=== PATIENT | female | born 1960 | race Hispanic/Latino ===

== ENCOUNTER 2025-09-23 17:51 | Emergency (ER) | payer OTHER, MEDICAID ==
[~2025-09-23] VITALS: Ht 162.6 cm; Wt 99.8 kg
--- NOTE | 2025-09-23 17:57 | ERN ---
ED Note History of Present Illness Stated Complaint: ANXIETY Chief Complaint: Anxiety/Panic Attack Time Seen by MD: 17:52 Dictation: PATIENT IS A 65-YEAR-OLD FEMALE COMING IN FROM HOME VIA EMS WITH COMPLAINTS OF NEEDING AMBIEN BECAUSE SHE RAN OUT A WEEK AGO. SHE DENIES SUICIDAL OR HOMICIDAL IDEATION SHE IS POORLY REDIRECTED IN YELLING OUT. EMS STATES THAT IT WAS HER BOYFRIEND THAT SHE LIVES WITH A CALLED THEM TO BRING HER TO [facility]. PATIENT DOES STATE HER PSYCHIATRIST HIS EMILY, IN [facility]. Allergies: Coded Allergies: azithromycin (Unverified Allergy, Unknown, 09/23/25) Past Medical History RN Note Reviewed/Agreed w/PFSH: Yes Review of System Dictation CONSTITUTIONAL: NEGATIVE EXCEPT FOR HPI HEAD/FACE: NEGATIVE EXCEPT FOR HPI EENT: NEGATIVE EXCEPT FOR HPI RESPIRATORY: NEGATIVE EXCEPT FOR HPI GASTROINTESTINAL/ABDOMINAL: NEGATIVE EXCEPT FOR HPI GENITOURINARY: NEGATIVE EXCEPT FOR HPI MUSCULOSKELETAL: NEGATIVE EXCEPT FOR HPI INTEGUMENTARY: NEGATIVE EXCEPT FOR HPI NEUROLOGICAL/PSYCH: NEGATIVE EXCEPT FOR HPI ANXIETY HEMATOLOGIC/LYMPHATIC: NEGATIVE EXCEPT FOR HPI ALL SYSTEMS NEGATIVE, EXCEPT NOTED ABOVE. 13 POINT REVIEW OF SYSTEMS ASSESSED AND ALL NEGATIVE EXCEPT FOR ABOVE. Initial Vital Sign VS Vital Signs Date Time Temp Pulse Resp B/P (MAP) Pulse Ox O2 Delivery O2 Flow Rate FiO2 09/23/25 17:53 98.1 95 18 171/89 98 Room Air 0 09/23/25 18:06 21 Physical Exam Dictation VITAL SIGNS REVIEWED GENERAL APPEARANCE: ALERT, ORIENTED X 3, ANXIOUS MODERATE CUTE DISTRESS, WELL DEVELOPED, NOURISHED. OBESE HEAD AND FACE: NON-TRAUMATIC. EYES: PERRL, PINK CONJUNCTIVAS, EYELID NO TRAUMA, ANTERIOR CHAMBER WITH ARCUS SENILIS. EARS: PINNAS INTACT AND NO SIGNS OF TRAUMA OR ERYTHEMA EAR CANALS CLEAR AND NO DISCHARGE TM NO ERYTHEMA NOSE: NO DISCHARGE, NO BLEEDING. OROPHARYNX: MOUTH NORMAL, TONGUE PINK, PHARYNX CLEAR,NO ERYTHEMA, TONSILS NO EXUDATES, NO ABSCESSES NOTED, MUCOUS MEMBRANE MOIST NECK: SUPPLE, NON-TENDER, NO THYROMEGALY, NO MASSES, NO JVD, NO BRUITS BREAST:DEFERRED CHEST:NO TENDERNESS, NO CREPITUS, NO PARADOXICAL MOVEMENT, NO RETRACTIONS LUNGS:CLEAR, WELL-VENTILATED, SYMMETRIC, NO RALES, NO WHEEZING, NO RHONCHI, NO STRIDOR, GOOD BREATH SOUNDS BILATERALLY HEART: REGULAR RATE, REGULAR RHYTHM, NO MURMUR, NO GALLOPS VASCULAR: NO PERIPHERAL EDEMA, ABDOMEN: SOFT, POSITIVE BOWEL SOUNDS, NONDISTENDED, NO GUARDING, NONTENDER, NO REBOUND, NO MASSES NO HEPATOMEGALY, NO SPLENOMEGALY, NO GRULLON'S SIGN, NO HERNIAS. RECTAL: DEFERRED GENITAL: DEFERRED NEUROLOGICAL: PATIENT WILL REDIRECT TEMPORARILY AND THEN SHE BEGAN YELLING OUT LOUD THAT SHE NEEDS TO BREATHE AND NEEDS AMBIEN. NO SUICIDAL OR HOMICIDAL IDEATION. NO STROKE-LIKE SYMPTOMS. MUSCULOSKELETAL: NECK NONTENDER, FULL RANGE OF MOTION, BACK NONTENDER, FULL RANGE OF MOTION, EXTREMITIES: NONTENDER, FULL RANGE OF MOTION SKIN: COLOR PINK, DRY, NO TURGOR, NO RASH, NO LACERATIONS, NO ABRASIONS, NO CONTUSIONS. LYMPHATIC: DEFERRED Results (Laboratory/Radiology) Laboratory/Radiology Laboratory Tests Test 09/23/25 18:03 White Blood Count 11.9 K/uL (4.8-10.8) H Red Blood Count 4.78 MIL/uL (4.00-5.50) Hemoglobin 13.8 g/dL (12.0-16.0) Hematocrit 40.1 % (36-48) Mean Corpuscular Volume 83.9 fL (79-99) Mean Corpuscular Hemoglobin 28.9 pg (27.0-33.0) Mean Corpuscular Hemoglobin Concent 34.4 g/dL (32.0-36.0) Red Cell Distribution Width 12.9 % (11.0-15.5) Platelet Count 318 K/uL (130-400) Mean Platelet Volume 11.0 fL (7.5-10.5) H Immature Granulocyte % (Auto) 0.7 % (0-1) Neutrophils (%) (Auto) 73.9 % (40.0-77.0) Lymphocytes (%) (Auto) 19.8 % (21.0-51.0) L Monocytes (%) (Auto) 4.8 % (3.0-13.0) Eosinophils (%) (Auto) 0.3 % (0.0-8.0) Basophils (%) (Auto) 0.5 % (0.0-5.0) Neutrophils # (Auto) 8.8 K/uL (1.8-7.7) H Lymphocytes # (Auto) 2.4 K/uL (1.0-4.8) Monocytes # (Auto) 0.6 K/uL (0.1-1.0) Eosinophils # (Auto) 0.03 K/uL (0.00-0.70) Basophils # (Auto) 0.06 K/uL (0.00-0.20) Absolute Immature Granulocyte (auto 0.08 K/uL (0-1) Nucleated Red Blood Cells 0.0 % (0.0-0.19) Sodium Level 139 mmol/L (136-145) Potassium Level 3.7 mmol/L (3.5-5.1) Chloride Level 104 mmol/L (101-111) Carbon Dioxide Level 21 mmol/L (21-32) Blood Urea Nitrogen 13 mg/dL (7-18) Creatinine 1.0 mg/dL (0.5-1.0) Glomerular Filtration Rate Calc 63 mL/min (>90) Random Glucose 131 mg/dL (70-105) H Total Calcium 9.7 mg/dL (8.5-10.1) Salicylates Level < 2.8 mg/dL (2.8-20.0) L Acetaminophen Level < 1 mcg/mL (10-30) L Serum Alcohol 5 mg/dL (0-10) Labs Reviewed?: Yes ED Course ED Course Orders Procedure Category Date Status Time Drug Screen Urine LAB 09/23/25 Logged 17:53 Diphenhydramine Hcl PHA 09/23/25 Complete (Benadryl Inj) 18:00 Cbc With Differential LAB 09/23/25 Complete 17:53 Alcohol, Blood LAB 09/23/25 Complete 17:53 Salicylate LAB 09/23/25 Complete 17:53 Acetaminophen LAB 09/23/25 Complete 17:53 Urinalysis Profile LAB 09/23/25 Logged 17:53 Basic Metabolic Panel LAB 09/23/25 Complete 17:53 Current Medications Medications (Trade) Dose Ordered Sig/Shahnaz Route PRN Reason Start Time Stop Time Status Last Admin Dose Admin Diphenhydramine HCl (BENAdryl INJ) 50 mg ONCE ONCE IM 09/23/25 18:00 09/23/25 18:01 DC 09/23/25 18:10 Vital Signs Date Time Temp Pulse Resp B/P (MAP) Pulse Ox O2 Delivery O2 Flow Rate FiO2 09/23/25 18:55 98.1 88 18 152/82 98 Room Air* 0 21 09/23/25 18:06 98.1 96 18 152/82 98 Room Air* 0 21 09/23/25 17:53 98.1 95 18 171/89 98 Room Air 0 1908/PATIENT KEEPS ASKING FOR AN AMBIEN REFILL I HAD ADVISED HER I WOULD NOT BE GIVING HER THAT. I DID STAY I WOULD DISCHARGED HOME WITH A HYDROXYZINE PAMOATE AND SHE COULD FOLLOW UP WITH HER PSYCHIATRIST TOMORROW OR THE NEXT DAY. SHE STATES SHE WANTS TO BE DISCHARGED DENIES SUICIDAL OR HOMICIDAL IDEATION. HER BOYFRIEND HAS BEEN CALLED AND WE WILL PICK HER UP. Medical Decision Making MDM MDM: DIFFERENTIAL DIAGNOSIS: SI/HI/PANIC ATTACK/ELECTROLYTE IMBALANCE/DEHYDRATION/INSOMNIA MEDICATION ABUSE RATIONALE: TESTS CONSIDERED AND ORDERED SECONDARY TO SHARED DECISION MAKING INCLUDE: LABS PREVIOUS OUTSIDE RECORDS REVIEWED: OLD ER VISITS. RISK OF COMPLICATION AND/OR MORBIDITY OR MORTALITY OF PATIENT MANAGEMENT: NONE MEDICATIONS-PER MEDICATION RECONCILIATION NEED FOR HOSPITALIZATION: PATIENT DOES NOT MEET CRITERIA FOR HOSPITALIZATION. NONE NEED FOR EMERGENCY MAJOR/MINOR SURGERY: NO THERE ARE NO SOCIAL CONCERNS WITH THIS PATIENT. PRESCRIPTION DRUG MANAGEMENT HYDROXYZINE PAMOATE PRESCRIPTIONS WILL INCLUDE SYMPTOMATIC CARE PATIENT'S PRIOR EXTERNAL MEDICAL RECORDS FROM OTHER ER VISITS WERE REVIEWED BY ME INDICATED. PRIOR TESTING AND RESULTS FROM PREVIOUS VISITS WERE REVIEWED. PRIOR TESTS WERE TAKEN INTO ACCOUNT WITH MEDICAL DECISION MAKING AND RESOURCE UTILIZATION, INDEPENDENT HISTORIAN/HISTORIANS WERE USED TO OBTAIN COMPLETE MEDICAL HISTORY. I INDEPENDENTLY INTERPRETED THE TEST THAT WERE PERFORMED, RESULTS WERE REVIEWED BY ME AND CONSIDERED FINDINGS ON RADIOLOGY IF ORDERED. MEDICAL MANAGEMENT AND EXAMINATION INTERPRETATION DISCUSSIONS WERE HAD BY ME WITH OTHER QUALIFIED HEALTHCARE PROFESSIONALS INDICATED FOR THE PATIENT'S CARE. DX & DISP Disposition: Discharge Departure Impression: Primary Impression: Anxiety attack Additional Impressions: Sedative, hypnotic or anxiolytic abuse, Hyperglycemia Condition: Stable Scripts Hydroxyzine Pamoate (Hydroxyzine Pamoate) 100 Mg Capsule 1 CAP PO TID, #30 CAP 0 Refills 1 CAPSULE BY MOUTH EVERY 8 HOURS NEEDED FOR ANXIETY OR INSOMNIA. Prov: ALESSANDRA ROLDAN 09/23/25 Additional Instructions: FOLLOW-UP WITH PRIMARY CARE PROVIDER IN 1 TO 2 DAYS. TAKE MEDICATIONS DIRECTED HERE IN THE EMERGENCY ROOM. OKAY TO CONTINUE HOME MEDICATIONS UNLESS OTHERWISE DISCUSSED DURING YOUR VISIT IN THE EMERGENCY ROOM TODAY. RETURN TO YOUR NEAREST EMERGENCY ROOM IF SYMPTOMS WORSEN OR IF THERE IS NO IMPROVEMENT. CALL 911 IF YOU NEED IMMEDIATE ASSISTANCE. TAKE TYLENOL OR MOTRIN [id number] NEEDED AND IF NO CONTRAINDICATIONS ARE PRESENT. INCREASE ORAL HYDRATION. A WOUND CULTURE OR URINE CULTURE WAS ORDERED HERE IN THE EMERGENCY ROOM DEPARTMENT PLEASE FOLLOW-UP WITH PRIMARY CARE PROVIDER AND ADVISE THEM TO GET REPEAT PORTS FROM OUR FACILITY. IF YOU HAD ANY GENTRY WRAP/SPLINTS THAT WERE APPLIED HERE, PLEASE DO NOT REMOVE THEM UNTIL YOU SEE YOUR PRIMARY CARE OR SPECIALTY. TAKE HYDROXYZINE DIRECTED FOR INSOMNIA OR ANXIETY. FOLLOW UP WITH THE YOUR PSYCHIATRIST, NEXT 1-2 DAYS FOR YOUR REFILL ON YOUR AMBIEN. Referrals: PASHA ESPARZA MD (PCP) Time of Disposition: 19:10 I have reviewed the case, and I agree with, Diagnosis and Plan ALESSANDRA ROLDAN SHOP TECH Sep 23, 2025 17:57
[2025-09-23 18:09] LABS: IMMATURE GRANULOCYTE ABSOLUTE 0.08 K/uL (0-1); NUCLEATED RED BLOOD CELLS 0.0 % (0.0-0.19); PLATELET COUNT (AUTO) 318 K/uL (130-400); RED BLOOD CELL COUNT(AUTO) 4.78 MIL/uL (4.00-5.50); RED CELL DISTRIBUTION WIDTH 12.9 % (11.0-15.5); WHITE BLOOD COUNT (AUTO) 11.9 K/uL (4.8-10.8)
[2025-09-23 18:17] LABS: CREATININE 1.0 mg/dL (0.5-1.0); GLOMERULAR FILTR. RATE CALC 63 mL/min (>90); GLUCOSE,RANDOM 131 mg/dL (70-105); SODIUM SERUM 139 mmol/L (136-145); UREA NITROGEN, BLOOD 13 mg/dL (7-18)
[2025-09-23 18:21] LABS: ALCOHOL, BLOOD 5 mg/dL (0-10)
[2025-09-23 18:55] VITALS: BP 152/82; PULSE 88; RESP 18; TEMP 98.1; O2SAT 98
[2025-09-23] MEDS ORDERED: HYDR100C2 PO (19:11)
--- NOTE | 2025-09-23 19:16 | NUR ---
PATIENT IS ADAMANT THAT SHE WANTS HER PRESCRIPTION FOR AMBIEN. PATIENT EDUCATED REGARDING PRESCRIPTION NOT BEING ABLE TO BE PROVIDED AT THIS FACILITY BY PROVIDER AND ED RN. PATIENT IS ALERT TO SELF SITUATION, TIME AND LOCATION. PATIENT PROVIDED HOME PHONE NUMBER. STATES UNDERSTANDING AND WAS WHEELED TO LOBBY.
== END 2025-09-23 19:21 | disposition home or self-care (01) ==
LOC: EDH 17:51
DX: F41.0 Panic disorder [episodic paroxysmal anxiety] (principal); F13.10 Sedative, hypnotic or anxiolytic abuse, uncomplicated; Z88.1 Allergy status to other antibiotic agents; R73.9 Hyperglycemia, unspecified
CPT/HCPCS: 99283; 80048; 85025; 36415; 96372; G0481; J1200

== ENCOUNTER 2025-09-30 05:26 | Emergency (ER) | payer OTHER, MEDICAID ==
[~2025-09-30] VITALS: Ht 162.6 cm; Wt 104.3 kg
[~2025-09-30 05:26] MED LIST: HYDR100C2 PO
[2025-09-30 05:49] LABS: IMMATURE GRANULOCYTE ABSOLUTE 0.05 K/uL (0-1); NUCLEATED RED BLOOD CELLS 0.0 % (0.0-0.19); PLATELET COUNT (AUTO) 274 K/uL (130-400); RED BLOOD CELL COUNT(AUTO) 4.57 MIL/uL (4.00-5.50); RED CELL DISTRIBUTION WIDTH 13.1 % (11.0-15.5); WHITE BLOOD COUNT (AUTO) 10.1 K/uL (4.8-10.8)
[2025-09-30 05:57] LABS: CREATININE 0.7 mg/dL (0.5-1.0); GLOMERULAR FILTR. RATE CALC 97.0 mL/min (>90); GLUCOSE,RANDOM 113.0 mg/dL (70-105); SODIUM SERUM 137.0 mmol/L (136-145); UREA NITROGEN, BLOOD 11.0 mg/dL (7-18)
[2025-09-30 06:04] LABS: ASPARTATE AMINOTRANSFERASE 19.0 U/L (10-37); TOTAL PROTEIN, SERUM 6.8 g/dL (6.0-8.3)
--- NOTE | 2025-09-30 06:41 | NUR ---
PATIENT RESTLESS, MOANING, STATES ANXIETY, REQUESTING AMBIEN.
--- NOTE | 2025-09-30 07:20 | ERN ---
ED Note History of Present Illness Stated Complaint: RLQ ABDOMINAL PAIN Chief Complaint: Abdominal Pain Time Seen by MD: 05:30 Dictation: This is a 65-year-old female who presented to the emergency room via EMS for evaluation of nonspecific abdominal pain and requesting Ambien. Patient apparently is followed by a psychiatrist in [facility] and she typically takes Ambien 10 mg 2 tablets at night along with 2 tablets of Seroquel 100 mg each. She was in the emergency room a week ago with the same request. I have no records or information see other than what she reported to review. The EMS stated that she called them 12 times. Patient has a history of inte rmittently screaming and yelling for no reason. . Temperature 97.7 pulse 62 respirations 22 blood pressure 188/99 repeat 143/ 104 with a pulse oximetry of 98% on room air Patient has a history of hypertension, anxiety Allergies: Coded Allergies: azithromycin (Unverified Allergy, Unknown, 09/23/25) Home Meds Active Scripts Hydroxyzine Pamoate (Hydroxyzine Pamoate) 100 Mg Capsule, 1 CAP PO TID, #30 CAP 0 Refills 1 CAPSULE BY MOUTH EVERY 8 HOURS NEEDED FOR ANXIETY OR INSOMNIA. Prov:ALESSANDRA ROLDAN 09/23/25 Past Medical History Past Medical History: Anxiety, Bipolar, Depression, Hypertension Surgical History: Hysterectomy Family History: Negative History: Not Applicable RN Note Reviewed/Agreed w/PFSH: Yes Review of System Dictation Constitutional: Negative for fever,chills, and weight loss Eyes: Negative for injury, pain,redness, and discharge ENT: Negative for injury,pain or swelling Cardiovascular: Negative for chest pain, palpitations, and edema Respiratory: Negative for shortness of breath, cough, and wheezing, Abdomen/GI: Negative for abdominal pain, nausea, vomiting, diarrhea, and constipation Back: Negative for injury and pain : Negative for injury, bleeding and discharge MS/Extremity: Negative for injury and deformity Skin: Negative for rash, and discoloration Neuro: Negative for headache, weakness, numbness, tingling, and seizure Psych: Negative for suicide ideation, homicidal ideation, and hallucinations Initial Vital Sign VS Vital Signs Date Time Temp Pulse Resp B/P (MAP) Pulse Ox O2 Delivery O2 Flow Rate FiO2 09/30/25 05:27 97.7 62 22 188/99 98 Room Air 0 09/30/25 05:42 21 Physical Exam Dictation General: awake, alert, NAD chronically ill morbidly obese Head/Face: Normocephalic, atraumatic Eyes: PERRL, EOMI, vision at baseline ENT: oral cavity clear, TMs clear, no signs of infection Neck: Trachea midline, supple, no nuchal rigidity Cardiovascular: RRR, normal S1/S2, No MRGs, no JVD Respiratory: CTAB, no respiratory distress, No rales or wheezes Abdomen: Soft, non-tender, non-distended, normal bowel sounds, no guarding or rebound. Skin: Warm, dry, normal turgor, no rash MS/Extremity: Pulses equal, no cyanosis, neurovascular intact, FROM Neuro: COAx4, GCS 15, strength 5/5, CN 2-12 intact, normal cerebellar exam, no rmal gait, Psych: Normal behavior, mood, and affect normal Extremities-trace edema without any palpable cords, Homans sign is negative Results (Laboratory/Radiology) Laboratory/Radiology Laboratory Tests Test 09/30/25 05:38 White Blood Count 10.1 K/uL (4.8-10.8) Red Blood Count 4.57 MIL/uL (4.00-5.50) Hemoglobin 13.4 g/dL (12.0-16.0) Hematocrit 38.9 % (36-48) Mean Corpuscular Volume 85.1 fL (79-99) Mean Corpuscular Hemoglobin 29.3 pg (27.0-33.0) Mean Corpuscular Hemoglobin Concent 34.4 g/dL (32.0-36.0) Red Cell Distribution Width 13.1 % (11.0-15.5) Platelet Count 274 K/uL (130-400) Mean Platelet Volume 11.3 fL (7.5-10.5) H Immature Granulocyte % (Auto) 0.5 % (0-1) Neutrophils (%) (Auto) 64.7 % (40.0-77.0) Lymphocytes (%) (Auto) 26.2 % (21.0-51.0) Monocytes (%) (Auto) 6.5 % (3.0-13.0) Eosinophils (%) (Auto) 1.6 % (0.0-8.0) Basophils (%) (Auto) 0.5 % (0.0-5.0) Neutrophils # (Auto) 6.5 K/uL (1.8-7.7) Lymphocytes # (Auto) 2.6 K/uL (1.0-4.8) Monocytes # (Auto) 0.7 K/uL (0.1-1.0) Eosinophils # (Auto) 0.16 K/uL (0.00-0.70) Basophils # (Auto) 0.05 K/uL (0.00-0.20) Absolute Immature Granulocyte (auto 0.05 K/uL (0-1) Nucleated Red Blood Cells 0.0 % (0.0-0.19) Sodium Level 137 mmol/L (136-145) Potassium Level 3.4 mmol/L (3.5-5.1) L Chloride Level 102 mmol/L (101-111) Carbon Dioxide Level 24 mmol/L (21-32) Blood Urea Nitrogen 11 mg/dL (7-18) Creatinine 0.7 mg/dL (0.5-1.0) Glomerular Filtration Rate Calc 97 mL/min (>90) Random Glucose 113 mg/dL (70-105) H Total Calcium 9.0 mg/dL (8.5-10.1) Total Bilirubin 0.5 mg/dL (0.2-1.0) Direct Bilirubin 0.1 mg/dL (0.0-0.3) Aspartate Amino Transf (AST/SGOT) 19 U/L (10-37) Alanine Aminotransferase (ALT/SGPT) 25 U/L (12-78) Alkaline Phosphatase 89 U/L (50-136) Total Protein 6.8 g/dL (6.0-8.3) Albumin 3.6 g/dL (3.5-5.0) Lipase 15 U/L (16-77) L Labs Reviewed?: Yes ED Course ED Course Orders Procedure Category Date Status Time Cbc With Differential LAB 09/30/25 Complete 05:27 Basic Metabolic Panel LAB 09/30/25 Complete 05:27 Hepatic Function Panel LAB 09/30/25 Complete 05:27 Lipase LAB 09/30/25 Complete 05:27 12 Lead Ekg Tracing- EKG 09/30/25 Logged Technical 05:49 Quetiapine Fumarate PHA 09/30/25 Complete 25 Mg Tab (Seroquel 06:30 Current Medications Medications (Trade) Dose Ordered Sig/Shahnaz Route PRN Reason Start Time Stop Time Status Last Admin Dose Admin Quetiapine Fumarate (SEROquel 25 mg TAB) 50 mg ONCE ONCE PO 09/30/25 06:30 09/30/25 06:31 DC 09/30/25 06:30 Vital Signs Date Time Temp Pulse Resp B/P (MAP) Pulse Ox O2 Delivery O2 Flow Rate FiO2 09/30/25 05:42 61 22 143/104 97 Room Air* 0 21 09/30/25 05:27 97.7 62 22 188/99 98 Room Air 0 We will perform diagnostic labs, and administer medications according to the patient's complaint. Once the results are available, will review and personally interpreted the labs to rule out any acute life-threatening emergency the trach require immediate intervention and treatment. I will then re-evaluate the patient after treatment and diagnostic exams have return to determine whether the patient requires any further testing, can safely be discharged home or need further admission to hospital for additional treatment and evaluation. Medical Decision Making MDM Differential diagnosis: Sedative hypnotic abuse and dependence, benzodiazepine dependence, depression, anxiety, insomnia This is a 65-year-old female who presented to the emergency room via EMS for evaluation of nonspecific abdominal pain and requesting Ambien. Patient apparently is followed by a psychiatrist in [facility] and she typically takes Ambien 10 mg 2 tablets at night along with 2 tablets of Seroquel 100 mg each. She was in the emergency room a week ago with the same request. I have no records or information see other than what she reported to review. The EMS stated that she called them 12 times Temperature 97.7 pulse 62 respirations 22 blood pressure 188/99 repeat 143/104 with a pulse oximetry of 98% on room air Patient has a history of hypertension, anxiety Labs reviewed CBC is with a normal limits. BNP 7 is with a normal limits except for a potassium of 3.4. CMP is with a normal limits lipase is 15 I had a long discussion with the patient and explained to her that she needs to diligently follow up with her psychiatrist for her management of insomnia as well as anxiety and depression. I explained to her to discuss possibility of an SSRI or whichever medication that the psychiatrist deems appropriate for her. She also needs to maintain sleep hygiene. I also spoke on the phone with her boyfriend who she lives with and he is unsure of what medication she is taking. Rationale: Tests considered and ordered secondary to shared decision making include: Blood work Previous outside records reviewed: Old ER visits. Risk of complication and/or morbidity or mortality of patient management: None Medications-Per medication reconciliation Need for hospitalization: Patient does not meet criteria for hospitalization. Need for emergency major/minor surgery: No There are no social concerns with this patient. Prescription drug management Prescriptions will include symptomatic care Patient's prior external medical records from other ER visits were reviewed by me as indicated. Prior testing and results from previous visits were reviewed. Prior tests were taken into account with medical decision making and resource utilization, independent historian/historians were used to obtain complete medical history. I independently interpreted the test that were performed, results were reviewed by me and considered findings on radiology if ordered. Medical management and examination interpretation discussions were had by me with other qualified healthcare professionals as indicated for the patient's care. Problem List Problem List: (1) Sedative, hypnotic or anxiolytic abuse (2) Anxiety attack (3) Chronic insomnia DX & DISP Disposition: Discharge Departure Impression: Primary Impression: Sedative, hypnotic or anxiolytic abuse Additional Impressions: Anxiety attack, Chronic insomnia Condition: Stable Additional Instructions: Patient and the caregiver have been informed of all the diagnostic tests and the imaging conducted during the today's visit to the emergency room and has verbalized understanding of the results I have personally reviewed and interpreted all diagnostic exams performed here in the ER today as well as the vital signs documented by the nursing staff. The patient is now being discharged to home and should follow up with the primary care physician or the specialist as directed by the ER staff. Referrals: BRYANT VILLEGAS (PCP) JUS ARGUETA MD Sep 30, 2025 07:20
--- NOTE | 2025-09-30 07:32 | NUR ---
CALLED SIBLING BRIAN [phone] NO ANSWER WAS ABLE TO LEAVE A VOICEMAIL. CALLED MOTHER NUMBER NOT WORKING
[2025-09-30 08:03] VITALS: BP 143/91; PULSE 60; RESP 20; TEMP 97.7; O2SAT 98
--- NOTE | 2025-09-30 13:10 | EKG ---
[facility] Test Date: 2025-09-30 Test Time: 06:10:57 Pat Name: HARMONY ZAMBRANO Department: [facility] Room: Gender: F Bleach Tester: [id number] : [id number] Requested By: JUS ARGUETA Order Number: [id number] Reading MD: Caity Duncan Measurements Intervals [place] Rate: 52 P: 26 TX: 132 QRS: -4 QRSD: 93 T: -2 QT: 458 QTc: 425 Interpretive Statements Sinus rhythm No previous ECG available for comparison Electronically Signed On 09-30-2025 13:46:12 BASIC SCIENCES PROFESSOR by Caity Duncan Please click the below link to view image of tracing.
== END 2025-09-30 08:03 | disposition home or self-care (01) ==
LOC: EDH 05:26
DX: F13.10 Sedative, hypnotic or anxiolytic abuse, uncomplicated (principal); F41.0 Panic disorder [episodic paroxysmal anxiety]; F51.04 Psychophysiologic insomnia; I10 Essential (primary) hypertension; F31.9 Bipolar disorder, unspecified; E66.01 Morbid (severe) obesity due to excess calories; Z88.1 Allergy status to other antibiotic agents; Z90.710 Acquired absence of both cervix and uterus; Z68.39 Body mass index [BMI] 39.0-39.9, adult
CPT/HCPCS: 36415; 80048; 80076; 83690; 85025; 93005; 99284